=== PATIENT | female | born 1990 | race Caucasian/White ===

== ENCOUNTER 2019-01-19 11:13 | Outpatient (CLI) | payer MEDICAID | END 2019-01-19 12:10 | disposition home or self-care (01) | LOC: OBT 11:13 → L-D 11:13 → OBT 12:10 | DX: O26.892 Other specified pregnancy related conditions, second trimester (principal); K08.89 Other specified disorders of teeth and supporting structures; Z3A.24 24 weeks gestation of pregnancy | CPT/HCPCS: Z7500 ==

== ENCOUNTER 2019-04-02 14:04 | Outpatient (CLI) | payer MEDICAID ==
[2019-04-02 15:05] LABS: RUPTURE FETAL MEMBRANES NEGATIVE (NEGATIVE)
== END 2019-04-02 17:06 | disposition home or self-care (01) ==
LOC: OBT 14:04 → L-D 14:04 → OBT 17:06
DX: O42.913 Preterm premature rupture of membranes, unspecified as to length of time between rupture and onset of labor, third trimester (principal); Z3A.35 35 weeks gestation of pregnancy
CPT/HCPCS: 76818; 84112

== ENCOUNTER 2019-04-21 10:53 | Inpatient (IN) | payer MEDICAID ==
[2019-04-21] MEDS: LACTATED RINGER'S 1,000 ML IV ×4 (11:44→23:26)
[2019-04-21] MEDS ORDERED: CARBOPROST 250 MCG INJ IM ×2 (12:00→21:30)
[2019-04-21] MEDS ORDERED: MISOPROSTOL 200 MCG TAB PR ×2 (12:00→21:30)
[2019-04-21] MEDS ORDERED: METHYLERGONOVINE 0.2 MG INJ IM ×2 (12:00→21:30)
[2019-04-21] MEDS ORDERED: OXYTOCIN 30 UNITS/LR 500 ML IV ×2 (12:00→21:30)
[2019-04-21 12:04] LABS: ADD MAN DIFF? NO
[2019-04-21 12:09] LABS: WHITE BLOOD COUNT 8.3 10^3/ul (4.8-10.8)
[2019-04-21 12:09] LABS: BASOPHILS % 0.2 % (0.0-2.0); EOSINOPHILS # 0.1 10^3/ul (0.0-0.5); EOSINOPHILS % 0.6 % (0.0-7.0); HEMATOCRIT 36.7 % (37.0-47.0); HEMOGLOBIN 12.3 g/dl (12.0-16.0); LYMPHOCYTES # 1.4 10^3/ul (0.8-2.9); LYMPHOCYTES % 16.6 % (15.0-51.0); MEAN CORPUSCULAR HGB CONC 33.5 g/dl (32.0-37.0); MEAN CORPUSCULAR VOLUME 86.6 fl (82.0-101.0); MEAN PLATELET VOLUME 11.9 fl (7.4-10.4); MONOCYTE # 0.6 10^3/ul (0.3-0.9); MONOCYTES % 7.4 % (0.0-11.0); NEUTROPHIL # 6.1 10^3/ul (1.6-7.5); NEUTROPHILS % 74.2 % (39.0-77.0); PLATELET COUNT 207 10^3/UL (140-415); RED BLOOD COUNT 4.24 10^6/ul (4.20-5.40); RED CELL DISTRIBUTION WIDTH 14.3 % (11.5-14.5)
[2019-04-21 12:25] LABS: INR 0.89; PROTIME 12.2 Sec (11.9-14.9)
[2019-04-21 12:26] LABS: PARTIAL THROMBOPLASTIN TIME 27.5 Sec (23.0-35.0)
[2019-04-21 12:55] LABS: HEPATITIS B SURFACE ANTIGEN NEGATIVE (NEGATIVE)
[2019-04-21] MEDS ORDERED: ONDANSETRON 4 MG INJ IV ×2 (13:30→18:00)
[2019-04-21] MEDS ORDERED: CITRIC ACID/NA CITRATE 30 ML CUP PO (13:30)
[2019-04-21] MEDS: ONDANSETRON 4 MG INJ IV (15:46)
[2019-04-21] MEDS: CITRIC ACID/NA CITRATE 30 ML CUP PO (15:46)
[2019-04-21] MEDS ORDERED: morphine SULFATE/PF (10 MG/10 ML) INJ (16:42)
[2019-04-21] MEDS ORDERED: PHENYLephrine (100 MCG/ML) 10ML SYG ×2 (16:42→17:28)
[2019-04-21] MEDS ORDERED: OXYTOCIN 10 UNIT INJ (16:42)
[2019-04-21] MEDS ORDERED: DEXAMETHASONE 4 MG/ML 1 ML INJ (16:59)
[2019-04-21] MEDS ORDERED: KETOROLAC 30 MG INJ (16:59)
[2019-04-21] MEDS ORDERED: METOCLOPRAMIDE 10 MG INJ (16:59)
[2019-04-21] MEDS ORDERED: EPHEDrine 25 MG/5 ML SYG (17:28)
[2019-04-21] MEDS ORDERED: ACETAMINOPHEN 500 MG TAB PO (18:00)
[2019-04-21] MEDS ORDERED: DIPHENHYDRAMINE 50 MG INJ IV (18:00)
[2019-04-21] MEDS ORDERED: morphine 2 MG INJ IV ×2 (18:00)
[2019-04-21] MEDS ORDERED: NALOXONE (0.4 MG/ML) INJ IV (18:00)
[2019-04-21] MEDS ORDERED: NALBUPHINE HCL (10 MG/1 ML) INJ IV (18:00)
[2019-04-21] MEDS ORDERED: HYDROmorphONE 0.5 MG/0.5 ML SYG IV ×2 (18:00)
[2019-04-21] MEDS: CEFAZOLIN 2 GM/50 ML (PMX) 50 ML IVPB ×3 (18:36→23:25)
[2019-04-21] MEDS: OXYTOCIN 30 UNITS/LR 500 ML IV ×2 (18:41→19:29)
[2019-04-21] MEDS: AZITHROMYCIN 500MG/NS (PMX) 250 ML IVPB (18:44)
[2019-04-21] MEDS: KETOROLAC 30 MG INJ IV (19:28)
[2019-04-21] MEDS: ACETAMINOPHEN 500 MG TAB PO (19:32)
[2019-04-21] MEDS ORDERED: OXYCODONE/ACETAMINOPHEN (5/325) TAB PO (21:30)
[2019-04-21] MEDS ORDERED: NA PHOSPHATE/BIPHOS 133 ML ENEMA PR (21:30)
[2019-04-21] MEDS ORDERED: HYDROCODONE/APAP (5/325) TAB PO (21:30)
[2019-04-21 21:46] LABS: RAPID PLASMA REAGIN NONREACTIVE (NR)
[2019-04-21] MEDS: IBUPROFEN 800 MG TAB PO (22:00)
[2019-04-21] MEDS: SENNA/DOCUSATE NA (8.6MG/50MG) TAB PO (22:23)
[2019-04-21] MEDS: LANOLIN HPA 1 PKT TOP (22:24)
[2019-04-21] MEDS: CLINDAMYCIN 300 MG CAP PO (23:25)
[2019-04-22] MEDS: KETOROLAC 30 MG INJ IV ×2 (04:36→16:10)
[2019-04-22] MEDS: CLINDAMYCIN 300 MG CAP PO ×4 (05:47→23:42)
[2019-04-22] MEDS: CEFAZOLIN 2 GM/50 ML (PMX) 50 ML IVPB ×2 (05:47→13:46)
[2019-04-22] MEDS: IBUPROFEN 800 MG TAB PO ×3 (06:00→21:48)
[2019-04-22 08:53] LABS: ADD MAN DIFF? NO
[2019-04-22 08:59] LABS: WHITE BLOOD COUNT 12.3 10^3/ul (4.8-10.8)
[2019-04-22 08:59] LABS: BASOPHILS % 0.2 % (0.0-2.0); EOSINOPHILS % 0.2 % (0.0-7.0); HEMOGLOBIN 9.7 g/dl (12.0-16.0); LYMPHOCYTES # 1.8 10^3/ul (0.8-2.9); LYMPHOCYTES % 14.3 % (15.0-51.0); MEAN CORPUSCULAR HEMOGLOBIN 28.7 pg (29.0-33.0); MEAN CORPUSCULAR HGB CONC 33.4 g/dl (32.0-37.0); MEAN CORPUSCULAR VOLUME 85.8 fl (82.0-101.0); MONOCYTES % 7.7 % (0.0-11.0); NEUTROPHIL # 9.5 10^3/ul (1.6-7.5); NEUTROPHILS % 76.8 % (39.0-77.0); PLATELET COUNT 191 10^3/UL (140-415); RED BLOOD COUNT 3.38 10^6/ul (4.20-5.40); RED CELL DISTRIBUTION WIDTH 13.8 % (11.5-14.5)
[2019-04-22] MEDS: SENNA/DOCUSATE NA (8.6MG/50MG) TAB PO ×3 (09:25→20:38)
[2019-04-22] MEDS: BISACODYL 10 MG SUPP PR (17:21)
[2019-04-22] MEDS: HYDROCODONE/APAP (5/325) TAB PO (20:37)
[2019-04-23] MEDS: IBUPROFEN 800 MG TAB PO ×3 (06:15→22:20)
[2019-04-23] MEDS: CLINDAMYCIN 300 MG CAP PO ×3 (06:15→19:11)
[2019-04-23] MEDS: SENNA/DOCUSATE NA (8.6MG/50MG) TAB PO ×2 (09:00→21:00)
[2019-04-23] MEDS ORDERED: ACETAMINOPHEN 325 MG TAB PO (12:30)
[2019-04-23] MEDS: HYDROCODONE/APAP (5/325) TAB PO (12:31)
[2019-04-24] MEDS: CLINDAMYCIN 300 MG CAP PO ×3 (00:18→12:00)
[2019-04-24] MEDS: IBUPROFEN 800 MG TAB PO ×2 (05:53→13:45)
[2019-04-24] MEDS: LANOLIN HPA 1 PKT TOP ×2 (05:53→10:01)
[2019-04-24] MEDS ORDERED: MEASLES,MUMPS,RUBELLA VACCINE INJ SC* (09:00)
[2019-04-24] MEDS ORDERED: DIPHTH/TET/ACEL PERTUSS (ADULT) 0.5 ML VIAL IM* (09:00)
[2019-04-24] MEDS: SENNA/DOCUSATE NA (8.6MG/50MG) TAB PO (10:01)
[2019-04-24] MEDS: HYDROCODONE/APAP (5/325) TAB PO (12:00)
== END 2019-04-24 16:01 | disposition home or self-care (01) | DRG 788 ==
LOC: OBT 10:53 → L-D 10:53 → OBT 11:26 → L-D 11:36 → PP1 20:31
PROVIDERS: Obstetrics & Gynecology
PROC: 10D00Z1 Extraction of Products of Conception, Low, Open Approach (ICD-10-PCS; principal; 2019-04-21 17:00)
DX: O34.211 Maternal care for low transverse scar from previous cesarean delivery (principal); Z3A.38 38 weeks gestation of pregnancy; Z37.0 Single live birth
CPT/HCPCS: 85025; 85610; 85730; 86592; 86850; 86900; 86901; 87340; 99464